=== PATIENT | male | born 1990 | race African-American/Black ===

== ENCOUNTER 2017-02-12 11:50 | Emergency (ER) | payer OTHER ==
[2017-02-12 12:32] VITALS: BP 124/68
[2017-02-12] MEDS ORDERED: IBUPROFEN 800 MG TABLET PO ONE (13:13)
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
== END 2017-02-12 14:20 | disposition home or self-care (01) ==
LOC: ER 11:50
DX: S16.1XXA Strain of muscle, fascia and tendon at neck level, initial encounter (principal); S20.211A Contusion of right front wall of thorax, initial encounter; V49.50XA Passenger injured in collision with unspecified motor vehicles in traffic accident, initial encounter; M54.5 Low back pain; M54.2 Cervicalgia; R07.81 Pleurodynia; J45.909 Unspecified asthma, uncomplicated; F17.210 Nicotine dependence, cigarettes, uncomplicated; Z71.6 Tobacco abuse counseling
CPT/HCPCS: 72110; 72125; 99284